=== PATIENT | male | born 1995 ===

== ENCOUNTER 2020-03-07 22:21 | Emergency (ER) | payer BC ==
[2020-03-07] MEDS ORDERED: AMOX TR/K CLAV 400MG CHEW TAB PO ONE (23:19)
[2020-03-07] MEDS ORDERED: TETANUS & DIPHTHERIA TOX,ADULT 0.5 ML VIAL ONE (23:20)
--- NOTE | 2020-03-08 00:28 | EDPHYS ---
Physician Documentation [facility] Name: Varghese Falk Age: 24 yrs Sex: Male : 1995 Arrival Date: 03/07/2020 Time: 22:27 Bed 18 Private MD: ED Physician Alberto Velarde HPI: 03/07 23:03 This 24 yrs old Male presents to ER via Ambulatory with complaints of Dog Bite. mh7 23:03 The patient was bitten on the right hand and left hand, by a dog, while trying to stop mh7 animals from fighting, at home. Onset: The symptoms/episode began/occurred just prior to arrival, today. Animal information: Animal's vaccinations are up to date. The animal is known and can be quarantined. Secondary to the bite the patient reports a laceration, multiple lacerations, that are superficial, with the longest being 4 cm(s), Deep laceration left palm, multiple puncture wounds, that are superficial. Associated signs and symptoms: Pertinent negatives: bony tenderness, erythema at site, fever, fluctuance, loss of consciousness, motor deficit, numbness distal to wound, suspected foreign body, swelling at site, tenderness. Severity of symptoms: At their worst the symptoms were mild, just prior to arrival, earlier today, in the emergency department the symptoms are unchanged. Patient states that his two dogs were fighting and he got bitten on both hands when he tried to break them up.. Historical: - Allergies: 22:39 No Known Allergies; ll1 - PMHx: 22:40 psoriasis; ll1 - PSHx: 22:40 None; ll1 - Immunization history:: Adult Immunizations up to date. - Social history:: Smoking status: Patient denies any tobacco usage or history of. Patient uses alcohol, only on a social basis. Patient/guardian denies using street drugs. ROS: 23:11 Constitutional: Negative for fever, chills, and weight loss, Eyes: Negative for injury, mh7 pain, redness, and discharge, ENT: Negative for injury, pain, and discharge, Neck: Negative for injury, pain, and swelling, Cardiovascular: Negative for chest pain, palpitations, and edema, Respiratory: Negative for shortness of breath, cough, wheezing, and pleuritic chest pain, Abdomen/GI: Negative for abdominal pain, nausea, vomiting, diarrhea, and constipation, Back: Negative for injury and pain, : Negative for injury, bleeding, discharge, and swelling, Neuro: Negative for headache, weakness, numbness, tingling, and seizure, Psych: Negative for depression, anxiety, suicide ideation, homicidal ideation, and hallucinations, Allergy/Immunology: Negative for hives, rash, and allergies, Endocrine: Negative for neck swelling, polydipsia, polyuria, polyphagia, and marked weight changes, Hematologic/Lymphatic: Negative for swollen nodes, abnormal bleeding, and unusual bruising. Exam: 23:11 Constitutional: This is a well developed, well nourished patient who is awake, alert, mh7 and in no acute distress. Head/Face: Normocephalic, atraumatic. Neck: Trachea midline, no thyromegaly or masses palpated, and no cervical lymphadenopathy. Supple, full range of motion without nuchal rigidity, or vertebral point tenderness. No Meningismus. Chest/axilla: Normal chest wall appearance and motion. Nontender with no deformity. No lesions are appreciated. Cardiovascular: Regular rate and rhythm with a normal S1 and S2. No gallops, murmurs, or rubs. Normal PMI, no JVD. No pulse deficits. Respiratory: Lungs have equal breath sounds bilaterally, clear to auscultation and percussion. No rales, rhonchi or wheezes noted. No increased work of breathing, no retractions or nasal flaring. Abdomen/GI: Soft, non-tender, with normal bowel sounds. No distension or tympany. No guarding or rebound. No evidence of tenderness throughout. 23:11 Neuro: Awake and alert, GCS 15, oriented to person, place, time, and situation. Cranial nerves II-XII grossly intact. Motor strength 5/5 in all extremities. Sensory grossly intact. Cerebellar exam normal. Normal gait. Psych: Awake, alert, with orientation to person, place and time. Behavior, mood, and affect are within normal limits. 23:11 Musculoskeletal/extremity: Extremities: noted in the left hand: laceration, noted in the right hand: laceration, ROM: intact in all extremities, Circulation is intact in all extremities. Pulses: are normal with no appreciated deficits, Perfusion: the patient is normally perfused throughout, Perfusion: the extremity is normally perfused throughout, Sensation intact. Compartment Syndrome exam of affected extremity: is normal. no numbness, no tingling, no sensation deficit, no palor, no weak pulses, Joints: All joints appear normal with full range of motion. Weight bearing: able to fully bear weight, without difficulty, Tendon exam: specific tendon testing normal through active and passive range of motion 23:11 Skin: injury, laceration(s), the wound is approximately 4 cm(s), with a depth of 1.0 cm(s), of the left hand palmar aspect, the second wound is approximately 1.0 cm(s), with a depth of 0.25 cm(s), of the left thumb, the third wound is approximately 1.0 cm(s), with a depth of 0.25 cm(s), of the right thumb, the fourth wound is approximately 0.5 cm(s), with a depth of 0.25 cm(s), of the right thumb, puncture(s), that are superficial, of the left thumb, right thumb. Vital Signs: 22:36 BP 147 / 69; Pulse 107; Resp 17; Temp 98.9; Pulse Ox 98% ; Pain 4/10; ll1 23:40 BP 136 / 89; Pulse 90; Resp 18; Pulse Ox 100% on R/A; vc Laceration: 03/08 00:19 Wound Repair of 4.0cm ( 1.6in ) subcutaneous laceration to palm of left hand. Distal mh7 neuro/vascular/tendon intact. Wound prep: Extensive cleansing by nurse, Wound irrigation by nurse. Skin closed with 1-0 sterile strips using simple sutures and sterile technique. Dressed with non-adherent dressing. Patient tolerated well. MDM: 03/07 23:00 Patient medically screened. 7 03/08 00:19 Differential diagnosis: superficial laceration, tendon injury, vascular injury, mh7 puncture wound, fractures. Rabies Status: Rabies immunization is not indicated. Data reviewed: vital signs, nurses notes, radiologic studies, plain films. Data interpreted: Pulse oximetry: on room air is 100 %. Interpretation: normal. Counseling: I had a detailed discussion with the patient and/or guardian regarding: the historical points, exam findings, and any diagnostic results supporting the discharge/admit diagnosis, radiology results, the need for outpatient follow up, a hand specialist, to return to the emergency department if symptoms worsen or persist or if there are any questions or concerns that arise at home. Response to treatment: the patient's symptoms have markedly improved after treatment. 00:30 Refusal of service: The patient/guardian displays adequate decision making capability [facility] and despite a detailed discussion of alternatives, benefits, risks, and consequences refuses: Medications. ED course: Well appearing, NAD, VSS, neurovascularly intact, no focal neurological deficits. Discussed test results and findings with the patient. Patient declined any suture placement to lacerations preferred steri strips instead. Discussed increased risk of infection with any wound closure and possibility of disability and/or loss limbs. He verbalized that he understood this information as presented. He will follow up with his doctor but agreed to return to the ED if worsening of symptoms or other concerns.. 03/07 23:10 Order name: Hand Left 3 View XRAY [facility] 03/07 23:10 Order name: Hand Right 3 View XRAY [facility] 03/07 23:42 Order name: Wound Care; Complete Time: 23:42 vc 03/07 23:42 Order name: Wound dressing; Complete Time: 23:42 vc Administered Medications: 03/07 23:10 CANCELLED (Patient Refused): Motrin 800 mg PO once [facility] 23:24 Drug: Tetanus-Diphtheria Toxoid Adult 0.5 ml {Steno Typist: [employer]. Exp: mt2 10/03/2021. Lot #: [id number]. } Route: IM; Site: right deltoid; 23:41 Follow up: Response: No adverse reaction 23:24 Drug: Augmentin 500 mg Route: PO; nj2 23:41 Follow up: Response: No adverse reaction vc Disposition: 03/08/20 00:27 Discharged to Home. Impression: Dog Bite-Bilateral Hands, Hand Lacerations, Puncture Wounds. - Condition is Stable. - Discharge Instructions: Animal Bite, [id number], Laceration Care, Adult, [id number]. - Prescriptions for Augmentin 500- 125 mg Oral Tablet - take 1 tablet by ORAL route every 8 hours for 10 days; 30 tablet. - Medication Reconciliation Form, Thank You Letter, Antibiotic Education, Prescription Opioid Use form. - Follow up: Matthew Lea MD; When: 1 - 2 days; Reason: Worsening of condition, Recheck today's complaints. Follow up: Emergency Department; When: 48 Hours; Reason: Wound Recheck, Worsening of condition. - Problem is new. - Symptoms have improved. Signatures: Dispatcher [employer] EDMS Livan Mujica RN RN jb4 Rhea Golden RN RN Jose Hawley RN RN ll1 Alberto Velarde MD MD mh7 Gala Krishnamurthy RN RN mt2 Corrections: (The following items were deleted from the chart) 23:10 23:02 Motrin 800 mg PO once ordered. 7 [facility] 03/08 00:49 00:27 03/08/2020 00:27 Discharged to Home. Impression: Dog Bite-Bilateral Hands; Hand jb4 Lacerations; Puncture Wounds. Condition is Stable. Forms are Medication Reconciliation Form, Thank You Letter, Antibiotic Education, Prescription Opioid Use. Follow up: Matthew Lea; When: 1 - 2 days; Reason: Worsening of condition, Recheck today's complaints. Follow up: Emergency Department; When: 48 Hours; Reason: Wound Recheck, Worsening of condition. Problem is new. Symptoms have improved. 7
--- NOTE | 2020-03-08 00:28 | ER ---
Nurse's Notes [facility] Name: Varghese Falk Age: 24 yrs Sex: Male : 1995 Arrival Date: 03/07/2020 Time: 22:27 Bed 18 Private MD: Diagnosis: Dog Bite-Bilateral Hands;Hand Lacerations;Puncture Wounds Presentation: 03/07 22:36 Chief complaint: Patient states: Broke up a dog fight between his dogs 20 min [employer]. ll1 Multiple lacerations to both hands. Bleeding controlled. Coronavirus screen: Patient denies a cough. Patient denies shortness of breath or difficulty breathing. Patient denies measured and/or subjective temperature greater than 100.4F prior to today's visit. Patient denies travel on a cruise ship or to a country the [facility] currently lists as an affected area. Patient reports contact with known and/or suspected case of COVID-19. Patient instructed to continue to wear a mask when interacting with others. Patient moved to private room, placed in contact and droplet isolation with eye protection until further assessment. covid positive result today. Ebola Screen: Patient denies travel to an Ebola-affected area in the 21 days before illness onset. Initial Sepsis Screen: Does the patient meet any 2 criteria? HR > 90 bpm. No. Patient's initial sepsis screen is negative. Risk Assessment: Do you want to hurt yourself or someone else? Patient reports no desire to harm self or others. Onset of symptoms was March 07, 2020. 22:36 Method Of Arrival: Ambulatory ll1 22:36 Acuity: ERICA 4 ll1 23:00 Initial Sepsis Screen: Does the patient have a suspected source of infection? Yes: Skin mt2 breakdown/wound. Triage Assessment: 23:00 General: Appears in no apparent distress. Behavior is calm, cooperative, appropriate mt2 for age. Pain: Complains of pain in medial aspect of right thigh and left hand and right hand Pain does not radiate. Pain currently is 5 out of 10 on a pain scale. Historical: - Allergies: 22:39 No Known Allergies; ll1 - PMHx: 22:40 psoriasis; ll1 - PSHx: 22:40 None; ll1 - Immunization history:: Adult Immunizations up to date. - Social history:: Smoking status: Patient denies any tobacco usage or history of. Patient uses alcohol, only on a social basis. Patient/guardian denies using street drugs. Screenin:00 Abuse screen: Denies threats or abuse. Nutritional screening: No deficits noted. mt2 Tuberculosis screening: No symptoms or risk factors identified. Fall Risk None identified. Assessment: 23:00 General: Appears in no apparent distress. comfortable, Behavior is calm, cooperative, mt2 appropriate for age. Pain: Complains of pain in medial aspect of right thigh and left hand and right hand Pain does not radiate. Pain currently is 5 out of 10 on a pain scale. Neuro: Level of Consciousness is awake, alert, obeys commands, Oriented to person, place, time, situation, Appropriate for age. Cardiovascular: Capillary refill < 3 seconds Patient's skin is warm and dry. Respiratory: Airway is patent Respiratory effort is even, unlabored, Respiratory pattern is regular, symmetrical. GI: No signs and/or symptoms were reported involving the gastrointestinal system. : No signs and/or symptoms were reported regarding the genitourinary system. Derm: Wound noted dorsal aspect of proximal phalanx of right thumb, palm of left hand and medial aspect of right thigh. 03/08 00:48 Reassessment: Patient appears in no apparent distress at this time. Patient and/or jb4 family updated on plan of care and expected duration. Pain level reassessed. Patient is alert, oriented x 3, equal unlabored respirations, skin warm/dry/pink. Vital Signs: 03/07 22:36 BP 147 / 69; Pulse 107; Resp 17; Temp 98.9; Pulse Ox 98% ; Pain 4/10; ll1 23:40 BP 136 / 89; Pulse 90; Resp 18; Pulse Ox 100% on R/A; vc ED Course: 22:27 Patient arrived in ED. ag3 22:31 Alberto Velarde MD is Attending Physician. mh7 22:39 Triage completed. ll1 22:40 Arm band placed on Patient placed in an exam room, on a stretcher. ll1 22:45 Patient has correct armband on for positive identification. Bed in low position. Call ll1 light in reach. Side rails up X 1. [place] contacted about dog bite. Took patients information, and will send an officer to see patient. Charge Nurse informed. 22:56 Calcote, Rhea, RN is Primary Nurse. vc 23:47 Hand Left 3 View XRAY In Process Unspecified. EDMS 23:47 Hand Right 3 View XRAY In Process Unspecified. EDMS 23:53 Dressings: non-adherent dressing x 1 palm of left hand Steri strips 1/2 " X 3; palm of jp3 left hand Neosporin applied to laceration. wrapped in Coban tape. 03/08 00:25 Matthew Lea MD is Referral Physician. 7 00:48 No provider procedures requiring assistance completed. Patient did not have IV access jb4 during this emergency room visit. Administered Medications: 03/07 23:10 CANCELLED (Patient Refused): Motrin 800 mg PO once 7 23:24 Drug: Tetanus-Diphtheria Toxoid Adult 0.5 ml {Online Merchandising Manager: [employer]. Exp: mt2 10/03/2021. Lot #: [id number]. } Route: IM; Site: right deltoid; 23:41 Follow up: Response: No adverse reaction 23:24 Drug: Augmentin 500 mg Route: PO; mt2 23:41 Follow up: Response: No adverse reaction vc Outcome: 03/08 00:27 Discharge ordered by . 7 00:48 Discharged to home ambulatory. jb4 00:48 Condition: stable 00:48 Discharge instructions given to patient, Instructed on discharge instructions, follow up and referral plans. medication usage, Demonstrated understanding of instructions, follow-up care, medications, Prescriptions given X 1. 00:49 Patient left the ED. jb4 Signatures: Dispatcher [employer] EDLivan Childress RN RN jb4 Varghese Massey jp3 Amelie Monsivais ag3 Rhea Golden RN RN vc Lewis, Lynsay, RN RN ll1 Alberto Velarde MD MD 7 Gala Krishnamurthy RN RN mt2
--- NOTE | 2020-03-08 08:50 | RAD REPORT ---
EXAM DESCRIPTION: RAD - Hand Right 3 View - 03/07/2020 11:47 pm CLINICAL HISTORY: 24 years Male ANIMAL BITE COMPARISON: None TECHNIQUE: Three images of the right hand were obtained. FINDINGS: No fracture seen. Normal bony mineralization. No erosive or lytic lesions seen. No radiopaque foreign body. IMPRESSION: No fracture or dislocation seen. No abnormality noted. Electronically signed by: Christy Ray MD 03/08/2020 12:10 AM CDT Due to temporary technical issues with the PACS/Fluency reporting system, reports are being signed by the in house radiologist without review as a courtesy to ensure prompt reporting. The interpreting r adiologist is fully responsible for the content of the report.
--- NOTE | 2020-03-08 08:54 | RAD REPORT ---
EXAM DESCRIPTION: RAD - Hand Left 3 View - 03/07/2020 11:47 pm CLINICAL HISTORY: 24 years Male, ANIMAL BITE COMPARISON: None. FINDINGS: There is a small amount of soft tissue air projecting within the soft tissues between the first and second digits which may be related to recent laceration. No evidence of a radiopaque foreig n body. No evidence for an acute fracture. No dislocation. IMPRESSION: No evidence for an acute fracture of the left hand. No radiopaque foreign body. Electronically signed by: Adelso Montejo MD 03/08/2020 12:08 AM CDT Due to temporary technical issues with the PACS/Fluency reporting system, reports are being signed by the in house radiologist without review as a courtesy to ensure prompt reporting. The interpreting r adiologist is fully responsible for the content of the report.
== END 2020-03-08 00:49 | disposition home or self-care (01) ==
LOC: ER 22:21
PROC: 0JQK0ZZ Repair Left Hand Subcutaneous Tissue and Fascia, Open Approach (ICD-10-PCS; principal; 2020-03-08)
DX: S61.412A Laceration without foreign body of left hand, initial encounter (principal); W54.0XXA Bitten by dog, initial encounter; Y93.9 Activity, unspecified; Y92.017 Garden or yard in single-family (private) house as the place of occurrence of the external cause; Z23 Encounter for immunization
CPT/HCPCS: 90471; 90714; 99283